=== PATIENT | male | born 1995 | race Caucasian/White ===

== ENCOUNTER 2020-07-02 14:33 | Emergency (ER) | payer OTHER, SELFPAY ==
--- NOTE | 2020-07-02 16:29 | ER ---
Nurse's Notes [facility] Name: Abilio Patrick IV Age: 24 yrs Sex: Male : 1995 Arrival Date: 07/02/2020 Time: 14:37 Bed 8 Private MD: Diagnosis: Nausea;Myalgia Presentation: 07/02 15:28 Chief complaint: Patient states: N/V x1 day; sore body x 1 week, high BP x 2 days. jl7 Coronavirus screen: Client denies travel out of the [place] in the last 14 days. nausea, vomiting. Client presents with at least one sign or symptom that may indicate coronavirus-19. Standard/surgical mask placed on the client. Provider contacted for isolation considerations. Ebola Screen: No symptoms or risks identified at this time. Initial Sepsis Screen: Does the patient meet any 2 criteria? No. Patient's initial sepsis screen is negative. Does the patient have a suspected source of infection? No. Patient's initial sepsis screen is negative. Risk Assessment: Do you want to hurt yourself or someone else? Patient reports no desire to harm self or others. Onset of symptoms was July 02, 2020. Care prior to arrival: None. 15:28 Method Of Arrival: Ambulatory [facility] 15:28 Acuity: BIBIANA 4 jl7 Triage Assessment: 15:31 General: Appears in no apparent distress. uncomfortable, Behavior is calm, cooperative, jl7 appropriate for age. Pain: Denies pain. Neuro: Level of Consciousness is awake, alert, obeys commands. Cardiovascular: Patient's skin is warm and dry. Respiratory: Airway is patent Respiratory effort is even, unlabored, Respiratory pattern is regular, symmetrical. GI: Reports nausea, vomiting. : No signs and/or symptoms were reported regarding the genitourinary system. Derm: Skin is pink, warm \T\ dry. Historical: - Allergies: 15:31 No Known Allergies; jl7 - Home Meds: 15:31 None [Active]; jl7 - PMHx: 15:31 None; jl7 - PSHx: 15:31 Right hand; jl7 - Immunization history:: Adult Immunizations up to date. - Social history:: Smoking status: Patient reports the use of cigarette tobacco products, 3-4 cigarettes/day. Screenin:41 Abuse screen: Denies threats or abuse. Nutritional screening: No deficits noted. em Tuberculosis screening: No symptoms or risk factors identified. Fall Risk None identified. Assessment: 15:30 General: See triage assessment. 7 15:41 Reassessment: covid swab sent to lab. em 16:11 Reassessment: Pt provided with cup of water for PO challenge. jl7 16:30 Reassessment: Patient appears in no apparent distress at this time. Patient and/or jl7 family updated on plan of care and expected duration. Pain level reassessed. Patient is alert, oriented x 3, equal unlabored respirations, skin warm/dry/pink. GI: Pt able to keep water down at this time. Vital Signs: 15:28 BP 155 / 94; Pulse 95; Resp 19; Temp 99.5; Pulse Ox 100% ; Weight 122.47 kg; Height 6 7 ft. 0 in. (182.88 cm); Pain 0/10; 16:53 BP 144 / 89; Pulse 77; Resp 17; Pulse Ox 100% ; jl7 15:28 Body Mass Index 36.62 (122.47 kg, 182.88 cm) [facility] ED Course: 14:37 Patient arrived in ED. mr 14:43 Angeline Munguia, [facility] kb 14:43 Gonsalo Sr MD is Attending Physician. kb 15:28 Alee Morris, JOSUE is Primary Nurse. jl7 15:30 Triage completed. jl7 15:31 Arm band placed on right wrist. jl7 15:41 Patient has correct armband on for positive identification. Bed in low position. Call em light in reach. 16:00 COVID-19 swab sent to lab. jl7 16:30 No provider procedures requiring assistance completed. jl7 16:53 Patient did not have IV access during this emergency room visit. jl7 Administered Medications: No medications were administered Outcome: 16:28 Discharge ordered by . kb 16:53 Discharged to home ambulatory. jl7 16:53 Condition: stable 16:53 Discharge instructions given to patient, Instructed on discharge instructions, follow up and referral plans. medication usage, Demonstrated understanding of instructions, follow-up care, medications, Prescriptions given X 1. 16:53 Patient left the ED. jl7 Addendum: 07/07/2020 12:26 Addendum: COVID-19 Result: Negative result given to RN to notify pt. Contacted by: Shira Bustillo. Notified pt of negative COVID 19 swab results. Pt advised that even with a negative test result they should remain in isolation until symptom free for 3 days without medication. Pt also advised to return to the ED for worsening symptoms. Signatures: Angeline Munguia, AMINAH-C AMINAH-Danisha Rojas, Mami Lee RN, Edgar, RN RN em Leal, Jahala, RN RN jl7
--- NOTE | 2020-07-02 16:29 | EDPHYS ---
Physician Documentation [facility] Name: Abilio Patrick IV Age: 24 yrs Sex: Male : 1995 Arrival Date: 07/02/2020 Time: 14:37 Bed 8 Private MD: ED Physician Gonsalo Sr HPI: 07/02 16:51 This 24 yrs old Male presents to ER via Ambulatory with complaints of kb Nausea/Vomiting. 16:51 The patient presents to the emergency department with nausea. Onset: The kb symptoms/episode began/occurred 2 day(s) ago. Possible causes: unknown. The symptoms are aggravated by nothing. The symptoms are alleviated by nothing. Associated signs and symptoms: Pertinent positives: nausea, bodyaches, malaise. Severity of symptoms: At their worst the symptoms were moderate in the emergency department the symptoms are unchanged. The patient has not experienced similar symptoms in the past. The patient has not recently seen a physician. Pt states he has had nausea, body aches, and malaise for 2 days. Came to get tested for COVID. Denies fever, chills, cough, congestion, sore throat. Historical: - Allergies: 15:31 No Known Allergies; jl7 - Home Meds: 15:31 None [Active]; jl7 - PMHx: 15:31 None; jl7 - PSHx: 15:31 Right hand; jl7 - Immunization history:: Adult Immunizations up to date. - Social history:: Smoking status: Patient reports the use of cigarette tobacco products, 3-4 cigarettes/day. ROS: 16:50 Cardiovascular: Negative for chest pain, palpitations, and edema, Respiratory: Negative kb for shortness of breath, cough, wheezing, and pleuritic chest pain, Back: Negative for injury and pain, MS/Extremity: Negative for injury and deformity, Skin: Negative for injury, rash, and discoloration, Neuro: Negative for headache, weakness, numbness, tingling, and seizure. 16:50 Constitutional: Positive for body aches, malaise. 16:50 Abdomen/GI: Positive for nausea, Negative for abdominal pain, vomiting. Exam: 16:51 Constitutional: This is a well developed, well nourished patient who is awake, alert, kb and in no acute distress. Head/Face: Normocephalic, atraumatic. Chest/axilla: Normal chest wall appearance and motion. Nontender with no deformity. No lesions are appreciated. Cardiovascular: Regular rate and rhythm with a normal S1 and S2. No gallops, murmurs, or rubs. Normal PMI, no JVD. No pulse deficits. Respiratory: Lungs have equal breath sounds bilaterally, clear to auscultation and percussion. No rales, rhonchi or wheezes noted. No increased work of breathing, no retractions or nasal flaring. Abdomen/GI: Soft, non-tender, with normal bowel sounds. No distension or tympany. No guarding or rebound. No evidence of tenderness throughout. Skin: Warm, dry with normal turgor. Normal color with no rashes, no lesions, and no evidence of cellulitis. MS/ Extremity: Pulses equal, no cyanosis. Neurovascular intact. Full, normal range of motion. Neuro: Awake and alert, GCS 15, oriented to person, place, time, and situation. Cranial nerves II-XII grossly intact. Motor strength 5/5 in all extremities. Sensory grossly intact. Cerebellar exam normal. Normal gait. Vital Signs: 15:28 BP 155 / 94; Pulse 95; Resp 19; Temp 99.5; Pulse Ox 100% ; Weight 122.47 kg; Height 6 jl7 ft. 0 in. (182.88 cm); Pain 0/10; 16:53 BP 144 / 89; Pulse 77; Resp 17; Pulse Ox 100% ; jl7 15:28 Body Mass Index 36.62 (122.47 kg, 182.88 cm) jl7 MDM: 15:12 Patient medically screened. kb 16:26 Data reviewed: vital signs, nurses notes. Data interpreted: Pulse oximetry: on room air kb is 100 %. Interpretation: normal. Counseling: I had a detailed discussion with the patient and/or guardian regarding: the historical points, exam findings, and any diagnostic results supporting the discharge/admit diagnosis, lab results, the need for outpatient follow up, a family practitioner, to return to the emergency department if symptoms worsen or persist or if there are any questions or concerns that arise at home. 07/02 15:27 Order name: COVID-19 kb 07/02 16:18 Order name: Urine Dipstick--Ancillary (enter results) eb 07/02 15:27 Order name: Urine Dipstick-Ancillary (obtain specimen); Complete Time: 16:10 kb 07/02 15:27 Order name: PO challenge; Complete Time: 16:11 kb Administered Medications: No medications were administered Disposition: 07/02/20 16:28 Discharged to Home. Impression: Nausea, Myalgia. - Condition is Stable. - Discharge Instructions: Nausea, Adult, [id number], COVID-19. - Prescriptions for Zofran 4 mg Oral Tablet - take 1 tablet by ORAL route every 6 hours As needed; 20 tablet. - Medication Reconciliation Form, Thank You Letter, Antibiotic Education, Prescription Opioid Use form. - Follow up: Emergency Department; When: As needed; Reason: Worsening of condition. Follow up: Private Physician; When: 2 - 3 days; Reason: Recheck today's complaints, Continuance of care, Re-evaluation by your physician. Addendum: 07/04/2020 08:42 Co-signature as Attending Physician, Gonsalo Sr MD I agree with the assessment and c moffett plan of care. Signatures: Dispatcher [employer] EDAngeline Cueva, ASSISTANT PROFESSOR OF BUSINESS-C ASSISTANT PROFESSOR OF BUSINESS-Ckb Gonsalo Sr MD MD cha Leal, Jahala, RN RN jl7 Corrections: (The following items were deleted from the chart) 07/02 16:53 16:28 07/02/2020 16:28 Discharged to Home. Impression: Nausea; Myalgia. Condition is jl7 Stable. Forms are Medication Reconciliation Form, Thank You Letter, Antibiotic Education, Prescription Opioid Use. Follow up: Emergency Department; When: As needed; Reason: Worsening of condition. Follow up: Private Physician; When: 2 - 3 days; Reason: Recheck today's complaints, Continuance of care, Re-evaluation by your physician. kb
[2020-07-02 16:58] VITALS: TEMP 99.5; O2SAT 100
[2020-07-02 17:00] VITALS: BP 144/89
[2020-07-02 17:12] LABS: Urine Blood NEGATIVE (NEG); Urine Glucose NEGATIVE (NEG); Urine Protein NEGATIVE (NEG); Urine Specific Gravity 1.025 (1.005-1.030)
== END 2020-07-02 16:53 | disposition home or self-care (01) ==
LOC: ER 14:33
DX: M79.10 Myalgia, unspecified site (principal); Z20.828 Contact with and (suspected) exposure to other viral communicable diseases
CPT/HCPCS: 81003; 99282; U0002